=== PATIENT | male | born 1995 | race Caucasian/White ===

== ENCOUNTER 2022-06-04 15:07 | Emergency (ER) | payer BC, MEDICAID ==
--- NOTE | 2022-06-04 15:17 | ERPHSYRPT ---
- History of Present Illness Time Seen by Provider: 06/04/22 15:16 Source: patient Exam Limitations: no limitations Physician History: This patient has chronic poor dentition and generalized dental caries. He stated that he woke up today and was having a lot of pain in the right upper incisor region. He received Keflex from a neighbor/friend early this morning approximately 7 AM. He presents to the emergency department with dental pain. Timing/Duration: persistent (Chronic, generalized dental caries with increase in pain this morning) Severity: moderate (Generalized poor dentition and dental caries) ENT Location: dental Modifying Factors: Improves With: nothing Associated Symptoms: tooth pain Allergies/Adverse Reactions: No Known Drug Allergies Allergy (Verified 06/04/22 15:32) Travel Risk - International Travel Have you traveled outside of the country in past 3 weeks: No - Coronavirus Screening Are you exhibiting any of the following symptoms?: No Close contact with a COVID-19 positive Pt in past 14-21 Days: No - Review of Systems Constitutional: No Symptoms Eyes: No Symptoms Ears, Nose, & Throat: Other (Generalized poor dentition with generalized dental pain) Respiratory: No Symptoms Cardiac: No Symptoms Abdominal/Gastrointestinal: No Symptoms Genitourinary Symptoms: No Symptoms Musculoskeletal: No Symptoms Skin: No Symptoms Neurological: No Symptoms Psychological: No Symptoms Endocrine: No Symptoms Hematologic/Lymphatic: No Symptoms Immunological/Allergic: No Symptoms All Other Systems: Reviewed and Negative - Past Medical History Pertinent Past Medical History: No - Past Surgical History Past Surgical History: No - Nursing Vital Signs Nursing Vital Signs: Initial Vital Signs Temperature 97.2 F 06/04/22 15:22 Pulse Rate 82 06/04/22 15:22 Respiratory Rate 18 06/04/22 15:22 Blood Pressure 145/94 06/04/22 15:22 O2 Sat by Pulse Oximetry 100 06/04/22 15:22 Pain Scale Pain Intensity 6 - Physical Exam General Appearance: no apparent distress, alert, anxiety Eye Exam: bilateral eye: normal inspection, PERRL, EOMI Ear Exam: bilateral ear: auricle normal Nasal Exam: normal inspection Throat Exam: dental tenderness (Generalized poor dentition and generalized dental caries. 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, normal mood/affect, nml station & gait, sensation nml Skin Exam: normal color, warm, dry SpO2 Interpretation: normal O2 Delivery: Room Air - Course Nursing assessment & vital signs reviewed: Yes Ordered Tests: Medication Summary Discontinued Medications Generic Name Dose Route Start Last Admin Trade Name Jose PRN Reason Stop Dose Admin Cephalexin HCl 500 mg 06/04/22 15:39 Cephalexin Mh500 Mg Capsule PO 06/04/22 15:40 STAT ONE Ibuprofen 600 mg 06/04/22 15:39 Ibuprofen 600 Mg Tablet PO 06/04/22 15:40 STAT ONE Oxycodone/Acetaminophen 1 tab 06/04/22 15:39 Oxycodone Hcl/Apap 5 Mg/325 Mg Tablet PO 06/04/22 15:40 STAT STA - Progress Progress: unchanged Counseled pt/family regarding: diagnosis, need for follow-up, rad results - Departure Departure Disposition: Home Clinical Impression: Dental caries Condition: Stable Critical Care Time: No Referrals: NAVNEET NAVARRO [Primary Care Provider] - Follow up/PCP as directed Additional Instructions: Take your antibiotics as prescribed. Use Tylenol and ibuprofen for pain control. Call your dentist tomorrow to make arrangements for follow-up appointment for definitive care. Prescriptions: Cephalexin Mh 500 mg [Keflex 500 mg] 500 mg PO TID #21 cap
[2022-06-04 15:32] VITALS: BP 145/94; PULSE 82; O2SAT 100
[2022-06-04] MEDS ORDERED: PERCOCET TABLET 5/325MG PO STA (15:39)
[2022-06-04] MEDS ORDERED: KEFLEX 500 MG PO ONE (15:39)
[2022-06-04] MEDS ORDERED: MOTRIN 600 MG PO ONE (15:39)
[2022-06-04] MEDS ORDERED: PERCOCET TABLET 5/325MG ONE (15:45)
[2022-06-04] MEDS ORDERED: MOTRIN 600 MG ONE (15:45)
[2022-06-04] MEDS ORDERED: KEFLEX 500 MG ONE (15:45)
== END 2022-06-04 16:13 | disposition home or self-care (01) ==
LOC: ED 15:07
DX: K02.9 Dental caries, unspecified (principal)
CPT/HCPCS: 99282; A9270-GY

== ENCOUNTER 2025-07-19 07:39 | Emergency (ER) | payer MEDICAID ==
[2025-07-19 08:08] VITALS: RESP 16; TEMP 97.6
--- NOTE | 2025-07-19 08:32 | ERPHSYRPT ---
- History of Present Illness Time Seen by Provider: 07/19/25 08:00 Source: patient Exam Limitations: no limitations Patient Subjective Stated Complaint: patient stated he has had a painful rash to both hands for the past month, the pain has gotten worse and rash has not gone away Triage Nursing Assessment: patient presents to ed via ems, patient able to transfer from cot to bed without complication, patient alert and oriented x 4, patient denies any chest pain/sob, patient has redness/warmth to bilateral hands, no drainage noted from hands at this time, pulses palpable, hands tender upon palpation, pain rated 8/10 Physician History: Patient is a 30-year-old male current smoker otherwise no pertinent past medical history presents to our ED via EMS for evaluation of a pruritic, burning rash to both hands. Patient rates his pain 8 out of 10. Symptoms started 1 month ago and has got progressively worse. No systemic manifestation. Patient's symptoms are localized to his hands only. 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 Patient wears gloves. Patient has been doing this particular job for 7 months. No new soaps detergents or gloves. No trauma no fever. Patient otherwise feels well. He voices no other complaints or concerns at this time. Portions of this note were created with voice recognition technology. There may be grammatical, spelling, punctuation or sound alike errors Timing/Duration: constant Severity: moderate Modifying Factors: Improves With: nothing Associated Symptoms: denies symptoms Allergies/Adverse Reactions: No Known Drug Allergies Allergy (Verified 07/19/25 07:41) Home Medications: No Reportable Medications [No Reported Medications] 07/19/25 [History] Hx Influenza Vaccination/Date Given: Yes Hx Pneumococcal Vaccination/Date Given: No Travel Risk - International Travel Have you traveled outside of the country in past 3 weeks: No - Emerging Infectious Disease Are you exhibiting symptoms associated with any current EIDs: No - Review of Systems All Other Systems: Reviewed and Negative - Past Medical History Pertinent Past Medical History: No - Past Surgical History Past Surgical History: No - Social History Smoking Status: Current every day smoker Exposure to second hand smoke: Yes Drug Use: none - Social Determinants of Health Will the patient participate in the screening: Yes Do you worry about a steady place to live?: No Do you have any problems with any of the following?: No known problems In the past 12 months,have you had to go without utilities?: No Transportation Issues: No Has anyone in your support network made you feel unsafe?: No Have you or anyone in your house had to go w/o enough food: No - Nursing Vital Signs Nursing Vital Signs: Initial Vital Signs Temperature 97.6 F 07/19/25 07:39 Pulse Rate 75 07/19/25 07:39 Respiratory Rate 16 07/19/25 07:39 Blood Pressure 138/85 07/19/25 07:39 O2 Sat by Pulse Oximetry 100 07/19/25 07:39 Pain Scale Pain Intensity 8 - Physical Exam General Appearance: no apparent distress, alert Eye Exam: eyes nml inspection Ears, Nose, Throat Exam: normal ENT inspection Neck Exam: normal inspection, full range of motion Respiratory Exam: normal breath sounds, airway intact, No respiratory distress Cardiovascular Exam: regular rate/rhythm, normal heart sounds, normal peripheral pulses Gastrointestinal/Abdomen Exam: soft, normal bowel sounds, No tenderness, No mass Back Exam: normal inspection, normal range of motion, No CVA tenderness, No vertebral tenderness Extremity Exam: normal inspection, normal range of motion, pelvis stable, other (Patient's hands are red, chapped and slightly inflamed. There is evidence of tinea infection on the distal wrist and hands. The extremities are neurovasc intact distally compartments are soft cap refill less than 2 seconds.) Neurologic Exam: alert, oriented x 3, cooperative, normal mood/affect, sensation nml, No motor deficits Skin Exam: normal color, warm, dry, No rash Lymphatic Exam: No adenopathy SpO2 Interpretation: normal SpO2: 98 O2 Delivery: Room Air - Course Nursing assessment & vital signs reviewed: Yes - Progress Progress: improved Progress Note: 30-year-old male current smoker otherwise no pertinent past medical history presents to our ED with chapped swollen red hands and of gotten progressively worse over the past week. 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 Based on physical exam with evidence of tinea infection patient likely experiencing tinea manus. Patient's hand involvement follow a very well-defined glove distribution. Patient advised to discontinue wearing gloves. Patient advised to keep his hands clean. We administered 1% clotrimazole cream in our ED. Patient advised to continue this medication twice a day for 4 weeks until symptoms resolve. However he was advised to follow-up with his primary care doctor for monitoring of progression of improvement. Patient received Tylenol for pain control. Patient resting comfortably. Work note provided. Patient otherwise feels well and voices no other complaints or concerns at this time. I considered ordering clotrimazole/betamethasone cream however I felt that this may not be necessary. The betamethasone component may not be required if patient discontinues the causative behavior. History obtained by patient and EMS Differential diagnosis includes tinea manus, eczema, cellulitis, trauma Portions of this note were created with voice recognition technology. There may be grammatical, spelling, punctuation or sound alike errors Complexity of problem addressed is moderate acute complicated. No critical care time. Complexity of data reviewed and analyzed is none. No specialized testing ordered. Diagnosis made based on history and physical exam. Risk of complication and or risk of morbidity/mortality of patient management is moderate. Patient received a 30 g tube of clotrimazole in our ED. If the clotrimazole needs to be extended or a second to prescribe this may be done so by his primary care doctor. Vital stable. Time spent to discharge patient is approximately 15 minutes. Plan of care established for shared decision making. No social determinants of health present to impede follow-up. Portions of this note were created with voice recognition technology. There may be grammatical, spelling, punctuation or sound alike errors 07/19/25 08:37 Counseled pt/family regarding: diagnosis, need for follow-up - Departure Departure Disposition: Home Clinical Impression: Tinea manuum Condition: Stable Critical Care Time: No Referrals: NAVNEET NAVARRO [Primary Care Provider, [facility]] - Follow up/PCP as directed Additional Instructions: Discharge/Care Plan OSEAS KAY was seen on 07/19/25 in the Emergency Room. The patient was counseled regarding Diagnosis,Lab results, Imaging studies, need for follow up and when to return to the Emergency Room. Prescriptions given: Discharge Note I have spoken with the patient and/or caregivers. I have explained the patient's condition, diagnosis and treatment plan based on the information available to me at this time. I have answered the patient's and/or caregiver's questions and addressed any concerns. The patient and/or caregivers have as good understanding of the patient's diagnosis, condition and treatment plan as can be expected at this point. The vital signs have been stable. The patient's condition is stable and appropriate for discharge from the emergency department. The patient will pursue further outpatient evaluation with the primary care physician or other designated or consulting physician as outlined in the discharge instructions. The patient and/or caregivers are agreeable to this plan of care and follow-up instructions have been explained in detail. The patient and/or caregivers have received these instruction. The patient/and or caregivers are aware that any significant change in condition or worsening of symptoms should prompt an immediate return to this or the closest emergency department or call 911. Forms: Work/School Release Form
[2025-07-19] MEDS ORDERED: TYLENOL 325 MG ONE (08:44)
[2025-07-19] MEDS: LOTRIMIN CREAM 30 GM TP ONE (08:45)
[2025-07-19] MEDS: TYLENOL 325 MG PO ONE (08:45)
[2025-07-19 09:38] VITALS: BP 133/77; PULSE 80; O2SAT 99
== END 2025-07-19 09:38 | disposition home or self-care (01) ==
LOC: ED 07:39
DX: B35.2 Tinea manuum (principal); Z72.0 Tobacco use